=== PATIENT | female | born 1990 | race Caucasian/White ===

== ENCOUNTER 2016-11-30 15:48 | Emergency (ER) | payer OTHER ==
[~2016-11-30] VITALS: Ht 172.7 cm; Wt 90.7 kg
[~2016-11-30 15:48] MED LIST: ANTIVERT 25 MG25 M1 PO; BACTRIM DS 8001 TAB PO; CIPRO 500MG TA500 MG PO; FIORICET 300 MG1 CAP PO; FLEXERIL10 MG PO; HUMALOG100 U/ML SC; MIRENA1 EACH; PRILOSEC OTC20 M1 PO; REGLAN10 MG PO; SERTRALINE HCL50 MG PO; ZOFRAN ODT4 M1 SL
--- NOTE | 2016-11-30 15:50 | ED GENERAL ADULT ---
History of Present Illness General Chief Complaint: General Adult Stated Complaint: BIBA FOR HYPERGLYCEMIA Source: patient, family Exam Limitations: no limitations Vital Signs & Intake/Output Vital Signs & Intake/Output Vital Signs Date Time Temp Pulse Resp B/P B/P Pulse O2 O2 Flow FiO2 Mean Ox Delivery Rate 11/30 1823 97 20 105/70 98 Room Air 11/30 1703 96.1 98 20 103/69 98 Room Air 11/30 1550 96.0 89 20 112/81 99 Room Air Allergies Coded Allergies: NO KNOWN ALLERGIES (10/13/14) Reconcile Medications Insulin Aspart (Novolog) 100 UNIT/ML VIAL DM (Reported) Insulin Detemir (Levemir Flextouch) 100 UNIT/ML (3 ML) INSULN.PEN 35 UNITS SC QAM DM (Reported) Insulin Detemir (Levemir Flextouch) 100 UNIT/ML (3 ML) INSULN.PEN 20 UNITS SC QPM DM (Reported) Levonorgestrel (Mirena) 20 MCG/24 HOUR (5 YEARS) IUD CONTROL (Reported) Omeprazole Magnesium (Prilosec Otc) 20 MG TABLET.DR 1 TAB PO DAILY stomach upset Sertraline HCl 50 MG TABLET 1 TAB PO DAILY MENTAL HEALTH (Reported) Triage Nurses Notes Reviewed? yes Onset: Abrupt Duration: better Timing: single episode today Severity: moderate Severity Numbers: 5 No Modifying Factors: none HPI: Patient's 26-year-old female with past medical history of type 1 diabetes insulin-dependent who presents emergency room for concerns of a hyperglycemic event. Patient states that the past few days she has been feeling well with generalized complaints of weakness fatigue and decreased by mouth intake. It is noted today that patient prior to arrival was noted to be lightheaded dizzy and diaphoretic where she thought her blood sugar was "too high" where she didn't self administer 10 NovoLog the states that he came home and saw patient to be sleeping where he shook patient progressively worse she woke up however he was concerned as well of sugar being too high in which the blood sugar was noted to be 380 where 20 units of NovoLog were administered and patient was brought in by ambulance. No medications given in transport. Patient currently states that she has significant resolution of her presenting complaints today and "just feels tired". Patient denies any current fever chills abdominal pain nausea vomiting. Patient is able tolerate by mouth. (MARIAN ALMAGUER) Past History Travel History Traveled to [place] past 21 day No Medical History Any Pertinent Medical History? 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 No (MARIAN ALMAGUER) Review of Systems Review of Systems Constitutional: Reports: see HPI, weakness. EENTM: Reports: no symptoms. Respiratory: Reports: see HPI. Cardiovascular: Reports: see HPI. GI: Reports: no symptoms. Genitourinary: Reports: no symptoms. Musculoskeletal: Reports: no symptoms. Skin: Reports: no symptoms. Neurological/Psychological: Reports: no symptoms. Hematologic/Endocrine: Reports: no symptoms. Immunologic/Allergic: Reports: no symptoms. All Other Systems: Reviewed and Negative (MARIAN ALMAGUER) Physical Exam Physical Exam General Appearance: no apparent distress, alert, comfortable Comments: HEENT: Normal EENT exam, extraocular motion intact, no nystagmus. Pupils equally round and reactive to light and accommodation. Nose is atraumatic. External auditory canal and Tympanic membranes clear. Pharynx normal. No swelling or edema. Neck: Supple, no lymphadenopathy, normal range of motion without pain or tenderness Back: Nontender, no CVA tenderness. Cardiovascular: Regular rate and rhythms no murmurs rubs or gallops, normal JVP Respiratory: Chest nontender. No respiratory distress.breath sounds clear to auscultation bilaterally Abdomen: Soft, nontender nondistended, no appreciable organomegaly. Normal bowel sounds. No ascites Extremity: No edema, no calf tenderness to palpation, normal and equal pulses. Neuro: Alert oriented x3, motor sensory normal, cranial nerves II through XII grossly intact. Skin: No appreciable rash on exposed skin, skin is warm and dry. Psych: Mood and affect is normal, memory and judgment is normal. Core Measures ACS in differential dx? No CVA/TIA Diagnosis: No Severe Sepsis Present: No Septic Shock Present: No (MARIAN ALMAGUER) Progress Differential Diagnoses I considered the following diagnoses in my evaluation of the patient: [DKA, HHS, hyperglycemia, cholecystitis, APPENDICITIS, ] Plan of Care: Orders Procedure Date/time Status URINALYSIS 12/01 1819 Complete EKG 12/01 1647 Active MIXED VENOUS BLOOD GAS (GEN) 11/30 1644 Active LACTIC ACID 11/30 1644 Complete HUMAN BETA HCG SCREEN 11/30 1644 Complete COMPREHENSIVE METABOLIC PANEL 11/30 1644 Complete CBC WITHOUT DIFFERENTIAL 11/30 1644 Complete ACETONE 11/30 1644 Complete Laboratory Tests 11/30/161944: Lactic Acid Cancelled 11/30/161819: Urine Color YEL, Urine Clarity CLEAR, Urine pH 7.0, Ur Specific [place] 1.010, Urine Protein NEG, Urine Ketones 40 H, Urine Nitrite NEG, Urine Bilirubin NEG, Urine Urobilinogen 0.2, Ur Leukocyte Esterase NEG, Ur Microscopic SEDIMENT EXAMINED, Urine RBC 1-3, Urine WBC 5-10 H, Ur Epithelial Cells FEW, Urine Bacteria MOD H, Urine Mucus FEW, Urine Hemoglobin MOD H, Urine Glucose >=1000 H 11/30/16 1700: Bicarbonate Actual 24, Mixed VBG pH 7.38, Mixed VBG pCO2 42, Mixed VBG O2 Saturation 39, Carboxyhemoglobin 0.5 L, O2 Concentration % R/A, Anion Gap 8, Estimated GFR > 60, BUN/Creatinine Ratio 18.0, Glucose 120 H, Lactic Acid 1.7, Calcium 8.6, Total Bilirubin 1.9 H, AST 16, ALT 37, Alkaline Phosphatase 59, Total Protein 5.8 L, Albumin 3.3 L, Globulin 2.5, Albumin/Globulin Ratio 1.3, Total Beta HCG NEGATIVE, CBC w Diff NO MAN DIFF REQ, RBC 4.58, MCV 87.1, MCH 29.7, RDW 12.6, MPV 7.9, Gran % 51.9, Lymphocytes % 17.3 L, Monocytes % 2.9, Eosinophils % 27.3 H, Basophils % 0.6, Absolute Granulocytes 7.4 H, Absolute Lymphocytes 2.5, Absolute Monocytes 0.4, Absolute Eosinophils 3.9, Absolute Basophils 0.1, PUBS MCHC 34.1, Phlebotomy Draw Site VENOUS, Acetone Level NEGATIVE Patient currently is in no apparent distress and has normalized blood sugar No concerns of DKA. Patient has nontender abdomen. Patient was afebrile nontoxic appearing and has no concerns of right upper quadrant pain or cholecystitis at this time. Patient however was given prescription of repeat CBC and CMP (MARIAN ALMAGUER) Initial ED EKG: normal p-waves, normal QRS complex, normal sinus rhythm, 812 BPM , NSR (MARIAN ALMAGUER) Departure Departure Disposition: HOME OR SELF CARE Condition: Stable Clinical Impression Primary Impression: Hyperglycemia Secondary Impressions: Viral syndrome Referrals: GUILLERMO BRIAN,AXEL CASTRO (PCP/Family) Additional Instructions: As discussed continue your regular scheduled sliding scale insulin regimen and dietary habits. You have been given a prescription of repeat blood work in 2 days this will be sent to primary care doctor. If symptoms worsen return to emergency room. Departure Forms: Customer Survey General Discharge Information (MARIAN ALMAGUER) PA/KITCHEN PORTER Co-Sign Statement Statement: ED Attending supervision documentation- [] I saw and evaluated the patient. I have also reviewed all the pertinent lab results and diagnostic results. I agree with the findings and the plan of care as documented in the PA's/KITCHEN PORTER's documentation. [X] I have reviewed the ED Record and agree with the PA's/KITCHEN PORTER's documentation. [] Additions or exceptions (if any) to the PAs/KITCHEN PORTER's note and plan are summarized below: [] (ARJUN SOTO,CHENG Colindres) Critical Care Note Critical Care Note Critical Care Time: non-applicable (MARIAN ALMAGUER)
[2016-11-30] MEDS ORDERED: LEVEMIR FL100 UNIT/1 SC ×2 (16:50)
[2016-11-30] MEDS ORDERED: NOVOLOG100 UNIT/2 SC (16:50)
[2016-11-30 17:13] LABS: ABSOLUTE BASOPHIL COUNT 0.1 /CUMM (0.0-0.2); ABSOLUTE EOSINOPHIL COUNT 3.9 /CUMM (0.0-0.7); ABSOLUTE GRANULOCYTE CT 7.4 /CUMM (1.4-6.5); ABSOLUTE LYMPH COUNT 2.5 /CUMM (1.2-3.4); ABSOLUTE MONOCYTE COUNT 0.4 /CUMM (0.10-0.60); BASOPHIL % 0.6 % (0.0-2.0); GRANULOCYTE % 51.9 % (42.2-75.2); HEMATOCRIT 39.8 % (37-47); MEAN CORPUSCULAR HGB 29.7 PG (27.0-31.0); MEAN CORPUSCULAR HGB CONC 34.1 G/DL (33.0-37.0); MEAN CORPUSCULAR VOLUME 87.1 FL (81.0-99.0); MEAN PLATELET VOLUME 7.9 FL (7.4-10.4); PLATELET COUNT 239 /CUMM (130-400); RBC DISTRIBUTION WIDTH 12.6 % (11.5-14.5); RED BLOOD CELL CT 4.58 /CUMM (4.20-5.40); WHITE BLOOD CELL COUNT 14.3 /CUMM (4.8-10.8)
[2016-11-30 17:31] LABS: EOSINOPHIL % 27.3 % (0-5)
[2016-11-30 18:23] VITALS: BP 105/70
== END 2016-11-30 18:48 ==
LOC: ERH 15:48
PROVIDERS: Physician Assistant
DX: E10.65 Type 1 diabetes mellitus with hyperglycemia (principal)
CPT/HCPCS: 81001; 93005; 93010

== ENCOUNTER 2018-01-29 00:53 | Emergency (ER) | payer OTHER ==
[~2018-01-29 00:53] MED LIST changes: +LEVEMIR FL100 UNIT/1 SC; +NOVOLOG100 UNIT/2 SC
--- NOTE | 2018-01-29 01:31 | ED GI/GU/ABDOMINAL COMPLAINT ---
History of Present Illness General Chief Complaint: General Adult Stated Complaint: "UM I THINK IM DKA AND I THINK IM " Source: patient, old records, friend Exam Limitations: no limitations Vital Signs & Intake/Output Vital Signs & Intake/Output Vital Signs Date Time Temp Pulse Resp B/P B/P Pulse O2 O2 Flow FiO2 Mean Ox Delivery Rate 01/29 0128 100 Room Air 01/29 0105 98.1 109 18 140/81 100 Room Air Allergies Coded Allergies: No Known Allergies (01/29/18) Reconcile Medications Insulin Aspart (Novolog) 100 UNIT/ML VIAL DM (Reported) Insulin Detemir (Levemir Flextouch) 100 UNIT/ML (3 ML) INSULN.PEN 32 UNITS SC QAM DM (Reported) Insulin Detemir (Levemir Flextouch) 100 UNIT/ML (3 ML) INSULN.PEN 24 UNITS SC QPM DM (Reported) Levonorgestrel (Mirena) 20 MCG/24 HOUR (5 YEARS) IUD CONTROL (Reported) Omeprazole Magnesium (Prilosec Otc) 20 MG TABLET.DR 1 TAB PO DAILY stomach upset Sertraline HCl 50 MG TABLET 1 TAB PO DAILY MENTAL HEALTH (Reported) Triage Note: TRIAGE: PATIENT TO ER FROM HOME REPORTING HOME TEST YESTERDAY WAS POSITIVE, [facility] 01/28[facility]18, OBGYN APPT MADE FOR TOMORROW. LAST MENSES APPROX 01/02/18 THOUGH REPORTS SLIGHT BLEEDING SINCE. +NAUSEA, +HEADACHE. ALSO REPORTS, "WOKE UP REALLY NAUSEOUS W/ DRY MOUTH. BLOOD SUGAR METER WASN'T REGISTERING. SPILLING LARGE KETONES, TOOK 15 UNITS NOVOLOG, WAITED 20 MINUTES, STILL HADN'T REGISTERED ON METER. BEEN THROUGH THIS BEFORE, THINK IT'S DKA." Triage Nurses Notes Reviewed? yes LMP (ages 10-50): unknown ? y Is pt currently ? No Onset: Evening Duration: hour(s):, constant, continues in ED Timing: recent history Quality/Severity: moderate, nausea Radiation: no radiation Activities at Onset: rest Prior Abdominal Problems: similar symptoms Sexually Active: Yes Last Time You Were Sexual: less than 2 months ago Sexual Orientation: Heterosexual Use of Protection: No No Modifying Factors: none Associated Symptoms: loss of appetite, nausea/vomiting HPI: [facility]. In early December her mirena was removed and she was started on oral contraceptives. She is 0001. She had spotting on December 23 for 3 days. Several hours prior to admission patient felt her blood sugar was elevated with moderate to severe nausea. Her fingerstick blood sugar registered high. She took 15 units of regular insulin. She denies fever chills vomiting diarrhea chest pain cough shortness of breath headache dysuria rash bleeding. Past History Travel History Traveled to [place] past 21 day No Medical History Any Pertinent Medical History? 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 No Review of Systems Review of Systems Constitutional: Reports: see HPI, malaise. EENTM: Reports: no symptoms. Respiratory: Reports: no symptoms. Cardiovascular: Reports: no symptoms. GI: Reports: see HPI, nausea. Genitourinary: Reports: no symptoms. Musculoskeletal: Reports: no symptoms. Skin: Reports: no symptoms. Neurological/Psychological: Reports: no symptoms. Hematologic/Endocrine: Reports: no symptoms. Immunologic/Allergic: Reports: no symptoms. All Other Systems: Reviewed and Negative Physical Exam Physical Exam General Appearance: well developed/nourished, alert, awake, anxious, mild distress, obese Head: atraumatic, normal appearance Eyes: Bilateral: normal appearance, PERRL, EOMI, normal inspection. Ears, Nose, Throat, Mouth: hearing grossly normal, moist mucous membrane Neck: normal inspection, supple, full range of motion, normal alignment Respiratory: normal breath sounds, chest non-tender, no respiratory distress, quiet respiration, lungs clear Cardiovascular: regular rate/rhythm, normal peripheral pulses, norml femoral pulses equa Peripheral Pulses: 4+ carotid (R), 4+ carotid (L) Gastrointestinal: normal bowel sounds, soft, non-tender, no organomegaly Back: normal inspection, normal range of motion Extremities: normal range of motion, no ligament instability Neurologic/Psych: no motor/sensory deficits, awake, alert, oriented x 3, normal gait, normal mood/affect, program development manager II-XII nml as tested Skin: intact, normal color, warm/dry Core Measures ACS in differential dx? No Sepsis Present: No Sepsis Focused Exam Completed? No Progress Differential Diagnosis: DKA, hyperglycemia, Plan of Care: Orders Procedure Date/time Status LIPASE 01/30 116 Complete HUMAN BETA HCG TITRE 01/30 116 Complete COMPREHENSIVE METABOLIC PANEL 01/30 116 Complete CBC WITHOUT DIFFERENTIAL 01/30 116 Complete ACETONE 01/30 116 Complete Current Medications Sig/Moraima Start time Last Medication Dose Stop Time Status Admin Insulin Human Regular 15 UNITS ONCE ONE 01/29 245 CAN (NovoLIN R) 01/29 246 Laboratory Tests 01/29/18114: Anion Gap 20 H, Estimated GFR > 60, BUN/Creatinine Ratio 27.1 H, Glucose 420 H, Calcium 11.4 H, Total Bilirubin 2.6 H, AST 18, ALT 25, Alkaline Phosphatase 76, Total Protein 7.4, Albumin 4.6, Globulin 2.8, Albumin/Globulin Ratio 1.6, Lipase 62, Beta HCG, Quant 289.8, CBC w Diff NO MAN DIFF REQ, RBC 4.97, MCV 86.2 , MCH 29.9, MCHC 34.7, RDW 12.4, MPV 8.6, Gran % 72.5, Lymphocytes % 20.4 L, Monocytes % 4.8, Eosinophils % 1.8, Basophils % 0.5, Absolute Granulocytes 8.3 H, Absolute Lymphocytes 2.3, Absolute Monocytes 0.5, Absolute Eosinophils 0.2, Absolute Basophils 0.1, Acetone Level POSITIVE AT 1:4 DIL Initial ED EKG: none Departure Departure Time of Disposition: 420 Disposition: HOME OR SELF CARE Condition: Stable Clinical Impression Primary Impression: Hyperglycemia during Secondary Impressions: Nausea Referrals: Comfort BRIAN,Yolie Ivory (PCP/Family) Departure Forms: Customer Survey General Discharge Information Prescriptions: Current Visit Scripts Ondansetron (Zofran Odt) 1 TAB SL TID PRN nausea #10 TAB Ref 1
[2018-01-29 01:34] LABS: ABSOLUTE BASOPHIL COUNT 0.1 /CUMM (0.0-0.2); ABSOLUTE EOSINOPHIL COUNT 0.2 /CUMM (0.0-0.7); ABSOLUTE GRANULOCYTE CT 8.3 /CUMM (1.4-6.5); ABSOLUTE LYMPH COUNT 2.3 /CUMM (1.2-3.4); ABSOLUTE MONOCYTE COUNT 0.5 /CUMM (0.10-0.60); BASOPHIL % 0.5 % (0.0-2.0); EOSINOPHIL % 1.8 % (0-5); GRANULOCYTE % 72.5 % (42.2-75.2); HEMATOCRIT 42.8 % (37-47); MEAN CORPUSCULAR HGB 29.9 PG (27.0-31.0); MEAN CORPUSCULAR HGB CONC 34.7 G/DL (33.0-37.0); MEAN CORPUSCULAR VOLUME 86.2 FL (81.0-99.0); MEAN PLATELET VOLUME 8.6 FL (7.4-10.4); PLATELET COUNT 280 /CUMM (130-400); RBC DISTRIBUTION WIDTH 12.4 % (11.5-14.5); RED BLOOD CELL CT 4.97 /CUMM (4.20-5.40); WHITE BLOOD CELL COUNT 11.4 /CUMM (4.8-10.8)
[2018-01-29] MEDS ORDERED: ZOFRAN ODT4 M1 SL (04:27)
[2018-01-29 04:33] VITALS: BP 132/78
== END 2018-01-29 04:34 ==
LOC: ERH 00:53
PROVIDERS: Emergency Medicine
DX: O24.011 Pre-existing type 1 diabetes mellitus, in pregnancy, first trimester (principal); R73.9 Hyperglycemia, unspecified; R11.0 Nausea
CPT/HCPCS: 96361; 96374; J2405